=== PATIENT | female | born 1985 | race Caucasian/White ===

== ENCOUNTER 2018-05-15 08:31 | Observation (INO) | payer MEDICAID ==
[2018-05-15] VITALS (12 sets, daily range): BP systolic 90–136; BP diastolic 57–84
[~2018-05-15] VITALS: Ht 167.6 cm; Wt 85.8 kg
[~2018-05-15 08:31] MED LIST: ACHD5005 PO; ALBU17AE23; ALBU17AE3; AMOX500C2 PO; BCP; FERR256T PO; FLUO10CA19; FLUO20CA25; FLUO20CA25 PO; GFCD10B PO; IBP800T PO; MELO-198 PO; METH4TAB PO; MONT10TA21; NAPR-243 PO; NAPR-915 PO; PROP-33; PS30T; TRAM-42 PO; TRIA16.5 NS; [UNRECOGNIZED DRUG - CODE]; [UNRECOGNIZED DRUG - CODE] PO
[2018-05-15] MEDS ORDERED: CETI10CA PO (09:14)
[2018-05-15] MEDS ORDERED: NS IV 1000 ML 1,000 ML IV ONE ×2 (09:23→10:12)
[2018-05-15] MEDS ORDERED: ONDANSETRON 4 MG/2 ML (SDV) Z0FRAN IVP ONE (09:30)
[2018-05-15 09:34] LABS: BASOPHILS % (AUTO) 0 % (0-10); BILIRUBIN,URINE NEGATIVE (NEGATIVE); CLARITY,URINE VERY CLOUDY; COLOR,URINE YELLOW; EOSINOPHILS % (AUTO) 0 % (0-10); GLUCOSE, URINE (UA) NEGATIVE (NEGATIVE); HEMATOCRIT 30 % (35-52); HEMOGLOBIN 9.9 G/DL (11.5-16.0); KETONES,URINE NEGATIVE (NEGATIVE); LEUKOCYTE ESTERASE ,URINE 3+ (NEGATIVE); LYMPHOCYTES # (AUTO) 0.9 X 10^3 (1.0-4.0); LYMPHOCYTES % (AUTO) 6 % (12-44); MEAN CORPUSCULAR HEMOGLOBIN 23 PG (25-34); MEAN CORPUSCULAR HGB CONC 33 G/DL (32-36); MEAN CORPUSCULAR VOLUME 72 FL (80-99); MEAN PLATELET VOLUME 10.9 FL (7.4-10.4); MONOCYTES # (AUTO) 0.7 X 10^3 (0.0-1.0); MONOCYTES % (AUTO) 5 % (0-12); NEUTROPHILS # (AUTO) 13.2 X 10^3 (1.8-7.8); NEUTROPHILS % (AUTO) 89 % (42-75); NITRITE,URINE NEGATIVE (NEGATIVE); PH,URINE 5 (5-9); PLATELET COUNT 288 10^3/uL (130-400); PROTEIN,URINE 3+ (NEGATIVE); RED BLOOD COUNT 4.25 10^6/uL (4.35-5.85); RED CELL DISTRIBUTION WIDTH 17.4 % (10.0-14.5); UROBILINOGEN,URINE NORMAL (NORMAL); WHITE BLOOD COUNT 14.9 10^3/uL (4.3-11.0)
--- NOTE | 2018-05-15 09:39 | ED General ---
General Chief Complaint: Fever-Adult/Adol Stated Complaint: FEVER 102 Nursing Triage Note: PT AMBULATES TO ROOM 9 PT STATES HAS HAD FEVER FOR 2 DAYS, PT STATES HAD TAKEN MOTRIN 800MG PO PRIOR TO COMING TO ED. PT CO OF LOW BACK PAIN AND CASTELLANOS. PT STATES HAD STREP THROAT A COUPLE WEEKS AGO Nursing Sepsis Screen: Possible Sepsis Risk (ADIA SANZ STUDENT) History of Present Illness Date Seen by Provider: May 15, 2018 Time Seen by Provider: 08:57 Initial Comments This is a 33 y.o female presenting to the ED with complaints of 102 fever that began yesterday 05/14. Pt also complains of lower back pain and headaches that began on 05/12. Patient admits to being lightheaded yesterday while cooking dinner and had to sit down because she felt like she was going to pass out, pt denies falling or loss of consciousness. Pt admits to increased urination, decrease in appetite, chest pressure, cough, nasal congestion and nausea; denies SOA, painful urination, vomiting, constipation (last BM 2 days ago, normal per pt), diarrhea, sore throat, nasal drainage. Pt was recently treated for Strep pharyngitis on 05/01, pt states she finished her antibiotics and here symptoms resolved. Pt LMP was 05/10, hx of tubal ligation. PMH asthma and anemia. (ADIA SANZ STUDENT) Allergies and Home Medications Allergies Coded Allergies: Penicillins (Verified Allergy, Unknown, 08/07/16) diphenhydramine (Verified Allergy, Unknown, 10/05/06) Uncoded Allergies: BENEDRYL (Allergy, Mild, 03/12/09) Home Medications Cetirizine HCl 10 Mg Capsule, 10 MG PO DAILY, (Reported) Naproxen 500 Mg Tablet, 500 MG PO BID Prescribed by: JOSEPH PATEL on 06/27/16 1709 Patient Home Medication List Home Medication List Reviewed: Yes (ADIA SANZ STUDENT) Review of Systems Constitutional: see HPI, dizziness, fever EENTM: see HPI, nose congestion, other (photophobia ); No ear pain, No throat pain Respiratory: see HPI, cough; No short of breath, No wheezing Cardiovascular: see HPI, other (Chest pressure ) Gastrointestinal: see HPI; No abdominal pain, No constipation, No diarrhea; loss of appetite, nausea; No vomiting Genitourinary: see HPI; No dysuria; frequency; No pain Musculoskeletal: back pain Skin: no symptoms reported Psychiatric/Neurological: No Symptoms Reported Hematologic/Lymphatic: Anemia (PMH ) Immunological/Allergic: no symptoms reported (YVONADIA Atticous STUDENT) Past Rqbqifo-Wfccig-Fylxns Hx Patient Social History Alcohol Use: Denies Use Recreational Drug Use: No Smoking Status: Never a Smoker Recent Foreign Travel: No Contact w/Someone Who Travel: No Recent Infectious Disease Expo: No Recent Hopitalizations: No Physical Abuse: No Sexual Abuse: No (HERMANNCHETADIA Atticous STUDENT) Seasonal Allergies Seasonal Allergies: Yes (HERMANNSUSAN ROSENBERGADIA MED IGLESIA) Past Medical History Surgeries: Yes (RIGHT SHOULDER-LABRAL TEAR) Orthopedic, Tubal Ligation Respiratory: Yes Asthma Cardiac: No Neurological: No Last Menstrual Period: May 10, 2018 ADMISSIONS COORDINATOR History: Tubal Ligation Gastrointestinal: No Musculoskeletal: Yes (CHRONIC RIGHT SHOULDER PAIN-BICEPS TENDONITIS--LABRAL TEAR) Endocrine: No Cancer: No Psychosocial: Yes Anxiety, Depression Nursing Suicide Risk Score: 0 Integumentary: No Blood Disorders: Yes (ANEMIA) (YVONADIA Atticous STUDENT) Family Medical History Heart Disease (CHADJESSICAADIA Atticous IGLESIA) Physical Exam Vital Signs Vital Signs - First Documented 05/15/18 08:45 Temp 103.9 Pulse 122 Resp 30 B/P (MAP) 126/68 (87) Pulse Ox 98 (RUTHY PALAFOX MD) Vital Signs Capillary Refill : Less Than 3 Seconds (HERMANNCHETADIA Atticous STUDENT) Height, Weight, BMI Height: 5'6.00" Weight: 178lbs. oz. [id number]; 30.82 BMI Method:Stated General Appearance: Mild Distress Eyes: Bilateral Eye Normal Inspection, Bilateral Eye PERRL, Bilateral Eye EOMI HEENT: TMs Normal, Other (pharynx mildly erythematous, mild tenderness to the R frontal sinus) Neck: Full Range of Motion, Normal Inspection, Non Tender, Supple Respiratory: Chest Non Tender, Lungs Clear, Normal Breath Sounds, No Accessory Muscle Use, Other Cardiovascular: No Edema, No Gallop, No JVD, No Murmur, Normal Peripheral Pulses, Tachycardia Gastrointestinal: Normal Bowel Sounds, No Organomegaly, No Pulsatile Mass, Non Tender, Soft Back: CVA Tenderness (R) Extremity: Normal Capillary Refill, Normal Inspection, Normal Range of Motion, Non Tender, No Calf Tenderness, No Pedal Edema Neurologic/Psychiatric: Alert, Oriented x3, No Motor/Sensory Deficits, Normal Mood/Affect Skin: Normal Color, Warm/Dry (ADIA SANZ MED STUDENT) Focused Exam Lactate Level 05/15/18 08:55: Lactic Acid Level 3.51*H (RUTHY PALAFOX MD) Lactic Acid Level Laboratory Tests Test 05/15/18 08:55 Lactic Acid Level 3.51 MMOL/L (0.50-2.00) *H (RUTHY PALAFOX MD) Progress/Results/Core Measures Suspected Sepsis Recent Fever Within 48 Hours: Yes Infection Criteria Present: Suspected New Infection New/Unexplained Altered Menta: No Sepsis Screen: Possible Sepsis Risk SIRS Temperature:103.9 Pulse: 122 Respiratory Rate: 30 Laboratory Tests 05/15/18 08:55: White Blood Count 14.9H Blood Pressure 126 /68 Mean: 87 05/15/18 08:55: Lactic Acid Level 3.51*H Laboratory Tests 05/15/18 08:55: Creatinine 0.93, INR Comment 1.1, Platelet Count 288, Total Bilirubin 0.5 (ADIA SANZ MED STUDENT) Results/Orders Lab Results Laboratory Tests Test 05/15/18 08:55 Range/Units White Blood Count 14.9 H 4.3-11.0 10^3/uL Red Blood Count 4.25 L 4.35-5.85 10^6/uL Hemoglobin 9.9 L 11.5-16.0 G/DL Hematocrit 30 L 35-52 % Mean Corpuscular Volume 72 L 80-99 FL Mean Corpuscular Hemoglobin 23 L 25-34 PG Mean Corpuscular Hemoglobin Concent 33 32-36 G/DL Red Cell Distribution Width 17.4 H 10.0-14.5 % Platelet Count 288 130-400 10^3/uL Mean Platelet Volume 10.9 H 7.4-10.4 FL Neutrophils (%) (Auto) 89 H 42-75 % Lymphocytes (%) (Auto) 6 L 12-44 % Monocytes (%) (Auto) 5 0-12 % Eosinophils (%) (Auto) 0 0-10 % Basophils (%) (Auto) 0 0-10 % Neutrophils # (Auto) 13.2 H 1.8-7.8 X 10^3 Lymphocytes # (Auto) 0.9 L 1.0-4.0 X 10^3 Monocytes # (Auto) 0.7 0.0-1.0 X 10^3 Eosinophils # (Auto) 0.0 0.0-0.3 10^3/uL Basophils # (Auto) 0.0 0.0-0.1 10^3/uL Prothrombin Time 14.5 12.2-14.7 SEC INR Comment 1.1 0.8-1.4 Activated Partial Thromboplast Time 27 24-35 SEC Urine Color YELLOW Urine Clarity VERY CLOUDY H Urine pH 5 5-9 Urine Specific [place] 1.015 L 1.016-1.022 Urine Protein 3+ H NEGATIVE Urine Glucose (UA) NEGATIVE NEGATIVE Urine Ketones NEGATIVE NEGATIVE Urine Nitrite NEGATIVE NEGATIVE Urine Bilirubin NEGATIVE NEGATIVE Urine Urobilinogen NORMAL NORMAL MG/DL Urine Leukocyte Esterase 3+ H NEGATIVE Urine RBC (Auto) 5+ H NEGATIVE Urine RBC 25-50 H /HPF Urine WBC TNTC H /HPF Urine Squamous Epithelial Cells >50 H /HPF Urine Crystals NONE /LPF Urine Bacteria MODERATE H /HPF Urine Casts NONE /LPF Urine Mucus NEGATIVE /LPF Urine Culture Indicated YES Sodium Level 137 135-145 MMOL/L Potassium Level 3.5 L 3.6-5.0 MMOL/L Chloride Level 104 98-107 MMOL/L Carbon Dioxide Level 25 21-32 MMOL/L Anion Gap 8 5-14 MMOL/L Blood Urea Nitrogen 7 7-18 MG/DL Creatinine 0.93 0.60-1.30 MG/DL Estimat Glomerular Filtration Rate > 60 BUN/Creatinine Ratio 8 Glucose Level 152 H 70-105 MG/DL Lactic Acid Level 3.51 *H 0.50-2.00 MMOL/L Calcium Level 9.5 8.5-10.1 MG/DL Total Bilirubin 0.5 0.1-1.0 MG/DL Aspartate Amino Transf (AST/SGOT) 8 5-34 U/L Alanine Aminotransferase (ALT/SGPT) 8 0-55 U/L Alkaline Phosphatase 70 40-136 U/L Total Protein 7.9 6.4-8.2 GM/DL Albumin 3.9 3.2-4.5 GM/DL Group A Streptococcus Screen NEGATIVE NEGATIVE (RUTHY PALAFOX MD) My Orders Orders - RUTHY PALAFOX MD Cbc With Automated Diff (05/15/18:) Comprehensive Metabolic Panel (05/15/18:) Lactic Acid Analyzer (05/15/18:) Blood Culture (05/15/18:) Sputum Culture (05/15/18:) Ua Culture If Indicated (05/15/18) Protime With Inr (05/15/18:) Partial Thromboplastin Time (05/15/18:) O2 (05/15/18:) Saline Lock/Iv-Start (05/15/18) Saline Lock/Iv-Start (05/15/18:) Vital Signs Adult Sepsis Patie Q15M (05/15/18:23) Remove Rings In Anticipation O (05/15/18:) Influenza A And B Antigens (05/15/18:) Saline Lock/Iv-Start (05/15/18:23) Ns Iv 1000 Ml (Sodium Chloride 0.9%) (05/15/18 09:23) Rapid Strep A Screen (05/15/18:) Chest Pa/Lat (2 View) (05/15/18 09:23) Ondansetron Injection (Zofran Injectio (05/15/18 09:30) Manual Differential (05/15/18 08:55) Urine Culture (05/15/18 08:55) Acetaminophen Tablet (Tylenol Tablet) (05/15/18 10:06) Saline Lock/Iv-Start (05/15/18 10:12) Ns Iv 1000 Ml (Sodium Chloride 0.9%) (05/15/18 10:12) Saline Lock/Iv-Start (05/15/18 10:12) Lactated Ringers (Lr 1000 Ml Iv Solution (05/15/18 10:12) Ketorolac Injection (Toradol Injection) (05/15/18 10:30) Ceftriaxone Injection (Rocephin Injectio (05/15/18 10:30) (RUTHY PALAFOX MD) Medications Given in ED Current Medications Medications Dose Ordered Sig/Lisa Route Start Time Stop Time Status Last Admin Dose Admin Acetaminophen 500 mg STK-MED ONCE .ROUTE 05/15/18 10:06 05/15/18 10:09 DC 05/15/18 10:05 500 MG Lactated Ringer's 1,000 ml @ 0 mls/hr Q0M ONCE IV 05/15/18 10:12 05/15/18 10:13 DC 05/15/18 10:45 1,000 MLS/HR Ondansetron HCl 8 mg ONCE ONCE IVP 05/15/18 09:30 05/15/18 09:31 DC 05/15/18 09:35 8 MG Sodium Chloride 1,000 ml @ 0 mls/hr Q0M ONCE IV 05/15/18 09:23 05/15/18 09:26 DC 05/15/18 09:35 1,000 MLS/HR (RUTHY PALAFOX MD) Vital Signs/I&O 05/15/18 08:45 Temp 103.9 Pulse 122 Resp 30 B/P (MAP) 126/68 (87) Pulse Ox 98 (RUTHY PALAFOX MD) Vital Signs/I&O Capillary Refill : Less Than 3 Seconds (ADIA SANZ STUDENT) Blood Pressure Mean: 87 Progress Note #1: Time: 09:00 Progress Note Pt seen and examined. Pt running a fever of 103.9 with HR 122 and RR 30. Urine looked cloudy on inspection. Will proceed with septic workup. Progress Note #2: Time: 10:20 Progress Note Labs show significant UTI with elevated WBC of 13.9 and lactic acid of 3.51. Discussed PCN allergy with patient she states she has had cephalosporins without incident in the past, will start Rocephin. Due to lactic acid of 3.51, will administer extra IVF incase of increase above 4 with administration of antibiotic. Pt complains of headache, Toradol was ordered. Tylenol was administered. Chest XR is unremarkable. Strep was negative (ADIA SANZ STUDENT) Progress Note : Progress Note Patient was interviewed, seen, and examined by me personally along with JODI Stringer student. I agree with her history, exam, assessment, and plan with the following additions. Patient has been afebrile since yesterday. She describes headache, backache, increased urinary frequency, and nausea. She was found to have a significant urinary tract infection by urinalysis. Septic workup was pursued. She is tachycardic and febrile and has an elevated WBC and lactic acid. Although patient does not quite meet severe sepsis criteria, aggressive hydration was ordered with 3 L of IV fluids in the ER. Patient was given Tylenol and Rocephin was administered for initial antibiotic therapy. Zofran was given for nausea. Toradol was given for headache. Heart rate was improving with hydration. Case was discussed with Dr. Power who agrees with admission. Blood pressure was stable and heart rate was improving with IV hydration. Influenza screen was pending at the time of admission. Therefore admission to the floor was felt appropriate. Exam: Gen.: Alert, oriented, uncomfortable, not in distress HEENT: Normocephalic and atraumatic Heart: Tachycardic with regular rhythm Lungs: Clear to auscultation bilaterally with normal effort Abdomen: Soft, nontender, normal bowel sounds Extremities: Nontender calves, no edema, negative Tia Skin: Warm, dry, no rashes (RUTHY PALAFOX MD) Diagnostic Imaging Diagonstic Imaging: Xray Plain Films/CT/US/NM/MRI: chest Comments Xray and report reviewed by me, see report below: NAME: PEDRO LYLE REC#: [id number] PT STATUS: REG ER : 1985 PHYSICIAN: RUTHY PALAFOX MD ADMIT DATE: 05/15/18/ER Draft Date of Exam:05/15/18 CHEST PA/LAT (2 VIEW) Indication: Headache, chills and back pain. Time of exam: 10:00 a.m. Comparison is made with prior study from 01/15/2013. The heart size is normal. The pulmonary vascularity is unremarkable. The lungs are clear. No infiltrate, effusion or pneumothorax is detected. Impression: No acute cardiopulmonary process is detected. Dictated on workstation # [id number] Dict: 05/15/18 0942 Trans: 05/15/18 0949 CV [id number] Interpreted by: EMANUEL ROY MD Electronically signed by: (ADIA SANZ) Departure Communication (Admissions) Time/Spoke to Admitting Phy: 10:[address] Power (ADIA SANZ) Impression Primary Impression: Sepsis Qualified Codes: A41.9 - Sepsis, unspecified organism Additional Impressions: Pyelonephritis Nausea Chest discomfort Headache Disposition: ADMITTED INPATIENT Condition: Stable/Unchanged Admissions Decision to Admit Reason: Admit from ER (General) Decision to Admit/Date: May 15, 2018 Time/Decision to Admit Time: 10:20 (ADIA SANZ) Departure-Patient Inst. Referrals: [facility] (PCP/Family) Primary Care Physician ADIA SANZ May 15, 2018 09:39 RUTHY PALAFOX MD May 15, 2018 10:59
[2018-05-15 09:41] LABS: INR 1.1 (0.8-1.4); PROTHROMBIN TIME PATIENT 14.5 SEC (12.2-14.7)
[2018-05-15 09:47] LABS: ALANINE AMINOTRANSFERASE 8 U/L (0-55); ALBUMIN 3.9 GM/DL (3.2-4.5); ALKALINE PHOSPHATASE 70 U/L (40-136); BILIRUBIN,TOTAL 0.5 MG/DL (0.1-1.0); BUN/CREATININE RATIO 8; CALCIUM 9.5 MG/DL (8.5-10.1); CARBON DIOXIDE 25 MMOL/L (21-32); CHLORIDE 104 MMOL/L (98-107); CREATININE SERUM 0.93 MG/DL (0.60-1.30); GFR ESTIMATED > 60; GLUCOSE 152 MG/DL (70-105); POTASSIUM 3.5 MMOL/L (3.6-5.0); SODIUM 137 MMOL/L (135-145); TOTAL PROTEIN 7.9 GM/DL (6.4-8.2)
--- NOTE | 2018-05-15 09:49 | Diagnostic Imaging Report ---
Indication: Headache, chills and back pain. Time of exam: 10:00 a.m. Comparison is made with prior study from 01/15/2013. The heart size is normal. The pulmonary vascularity is unremarkable. The lungs are clear. No infiltrate, effusion or pneumothorax is detected. Impression: No acute cardiopulmonary process is detected. Dictated by: Dictated on workstation # [id number]
[2018-05-15 09:55] LABS: BACTERIA,URINE MODERATE /HPF; RBC,URINE 25-50 /HPF; SQUAMOUS EPITHELIAL CELL,UR >50 /HPF; WBC,URINE TNTC /HPF
[2018-05-15] MEDS ORDERED: ACETAMINOPHEN 500 MG TAB (TYLENOL) ONE (10:06)
[2018-05-15] MEDS ORDERED: LACTATED RINGERS 1,000 ML IV ONE (10:12)
[2018-05-15] MEDS ORDERED: cefTRIAXone INJECTION 1,000 MG in NS (IVPB) 50 ML IV ONE (10:30)
[2018-05-15] MEDS ORDERED: KETOROLAC 30 MG/ML VIAL IVP ONE (10:30)
[2018-05-15 10:56] LABS: BAND NEUTROPHILS 8 %; LYMPHOCYTES % (MANUAL) 4 %; MONOCYTES % (MANUAL) 5 %; NEUTROPHILS % (MANUAL) 83 %
[2018-05-15 10:57] LABS: ANISOCYTOSIS SLIGHT; BASOPHILS % (MANUAL) 0 %; ELLIPT/OVALOCYTES SLIGHT; EOSINOPHILS % (MANUAL) 0 %; MICROCYTOSIS SLIGHT; POLYCHROMASIA SLIGHT
[2018-05-15] MEDS ORDERED: ONDANSETRON 4 MG/2 ML (SDV) Z0FRAN IV PRN (11:30)
[2018-05-15] MEDS ORDERED: CATHETER FLUSH 10 ML SYR IV PRN (11:30)
[2018-05-15] MEDS: IBUPROFEN 600 MG (MOTRIN) TAB PO PRN (13:05)
[2018-05-15] MEDS ORDERED: CETI10TA20 PO (14:38)
[2018-05-15] MEDS ORDERED: NAPR220T66 PO (14:38)
[2018-05-15] MEDS: NS IV 1000 ML 1,000 ML IV SCH ×3 (15:04→22:52)
[2018-05-15] MEDS: ACETAMINOPHEN 500 MG TAB (TYLENOL) PO PRN (16:48)
[2018-05-16] VITALS (8 sets, daily range): BP systolic 98–137; BP diastolic 58–80
[2018-05-16] MEDS: ACETAMINOPHEN 500 MG TAB (TYLENOL) PO PRN ×2 (01:17→20:06)
[2018-05-16 06:41] LABS: BASOPHILS % (AUTO) 0 % (0-10); EOSINOPHILS % (AUTO) 0 % (0-10); HEMATOCRIT 27 % (35-52); HEMOGLOBIN 8.5 G/DL (11.5-16.0); LYMPHOCYTES # (AUTO) 1.5 X 10^3 (1.0-4.0); LYMPHOCYTES % (AUTO) 9 % (12-44); MEAN CORPUSCULAR HEMOGLOBIN 23 PG (25-34); MEAN CORPUSCULAR HGB CONC 32 G/DL (32-36); MEAN CORPUSCULAR VOLUME 73 FL (80-99); MONOCYTES % (AUTO) 6 % (0-12); NEUTROPHILS # (AUTO) 14.1 X 10^3 (1.8-7.8); NEUTROPHILS % (AUTO) 85 % (42-75); PLATELET COUNT 244 10^3/uL (130-400); RED BLOOD COUNT 3.68 10^6/uL (4.35-5.85); RED CELL DISTRIBUTION WIDTH 17.4 % (10.0-14.5); WHITE BLOOD COUNT 16.6 10^3/uL (4.3-11.0)
[2018-05-16] MEDS: NS IV 1000 ML 1,000 ML IV SCH ×3 (06:44→23:40)
[2018-05-16] MEDS: IBUPROFEN 600 MG (MOTRIN) TAB PO PRN ×2 (06:47→13:59)
[2018-05-16 06:59] LABS: BUN/CREATININE RATIO 9; CALCIUM 8.4 MG/DL (8.5-10.1); CARBON DIOXIDE 21 MMOL/L (21-32); CHLORIDE 110 MMOL/L (98-107); CREATININE SERUM 0.75 MG/DL (0.60-1.30); GFR ESTIMATED > 60; GLUCOSE 104 MG/DL (70-105); POTASSIUM 3.6 MMOL/L (3.6-5.0); SODIUM 140 MMOL/L (135-145)
--- NOTE | 2018-05-16 08:41 | History & Physicial (CHS) ---
DAYNE IQBAL MED STUDENT 05/16/18 0841: HPI History of Present Illness: Patient is a 33 year old female who presented to the ED yesterday for fever and right lower back pain. She states that she has been running a high fever as well up to 103 and has been having increased urination the past few days but denies dysuria. She does admit to having some occasional headaches as well, admits to some nausea but no vomiting. Denies abdominal pain, and admits to some constipation. Her last bowel movement was 2 days ago. She was treated for strep pharyngitis on 05/01 and has finished her abx. She is feeling better today and is able to get up and use the bathroom. She tried eating twice yesterday but stopped due to nausea. Though she is feeling better and has not had a fever since yesterday, she would like to stay one more day to get feeling better. Source: patient Exam Limitations: no limitations Date seen by provider: May 16, 2018 Time Seen by Provider: 08:00 Attending Physician Valarie Power MD [facility] Consult Date of Admission May 15, 2018 at 10:25 Home Medications Home Medications Reviewed patient Home Medication Reconciliation performed by pharmacy medication reconciliations aircraft technician and/or nursing. Patients Allergies have been reviewed. Allergies Coded Allergies: Penicillins (Verified Allergy, Unknown, Pt has received ceftriaxone in the past w/o issue, 05/15/18) diphenhydramine (Verified Allergy, Unknown, 10/05/06) SPQ-Okwtza-Bofooi Hx Patient Social History Alcohol Use: Occasionally Uses Recreational Drug Use: No Smoking Status: Never a Smoker Recent Foreign Travel: No Contact w/other who traveled: No Recent Hopitalizations: No Recent Infectious Disease Expo: No Physical Abuse Screen: No Sexual Abuse: No Family Medical History Significant Family History: Heart Disease Family History: Patient reports no known family medical history. Review of Systems ([facility]) Constitutional: chills; No dizziness; fever, malaise EENTM: No blurred vision, No double vision, No throat pain Respiratory: No cough, No dyspnea on exertion, No short of breath Cardiovascular: No chest pain, No palpitations, No syncope Gastrointestinal: No abdominal pain; constipation, nausea; No vomiting Genitourinary: No dysuria; frequency Musculoskeletal: back pain (Right sided flank pain) Skin: no symptoms reported Psychiatric/Neurological: No Symptoms Reported Physical Exam-([facility]) Physical Exam Vital Signs VS - Last 72 Hours, by Label 05/15/18 05/15/18 05/15/18 05/15/18 08:45 10:58 11:20 11:20 Temp 103.9 101.7 100.3 Pulse 122 101 96 Resp 30 18 22 B/P (MAP) 126/68 (87) 120/78 96/59 Pulse Ox 98 99 98 O2 Delivery Room Air Room Air 05/15/18 05/15/18 05/15/18 05/15/18 11:40 11:56 12:05 13:00 Pulse 92 92 100 98 Resp 20 20 B/P (MAP) 106/70 90/62 Pulse Ox 94 94 05/15/18 05/15/18 05/15/18 05/15/18 14:41 15:20 16:20 16:45 Temp 98.3 Pulse 83 83 97 78 Resp 20 16 20 B/P (MAP) 100/66 104/68 (80) 120/76 (91) 93/63 Pulse Ox 100 100 100 100 O2 Delivery Room Air 05/15/18 05/15/18 05/15/18 05/15/18 16:48 17:20 18:20 19:00 Temp 100.4 Pulse 95 91 95 B/P (MAP) 136/84 (101) 94/58 (70) Pulse Ox 100 98 05/15/18 05/15/18 05/15/1818 19:20 19:20 20:20 20:20 Temp 98.8 Pulse 90 90 86 86 Resp 18 18 B/P (MAP) 90/57 90/57 (68) 96/65 (75) 96/65 Pulse Ox 98 98 98 98 O2 Delivery Room Air Room Air 05/15/18 05/16/18 05/16/18 05/16/18 23:10 01:00 01:00 02:04 Temp 99.1 100.3 99.7 Pulse 94 95 93 Resp 16 18 B/P (MAP) 102/71 104/68 Pulse Ox 99 98 O2 Delivery Room Air Room Air 05/16/18 05/16/18 05/16/18 03:07 05:03 07:00 Temp 98.9 97.8 Pulse 84 74 95 Resp 16 18 B/P (MAP) 110/75 137/80 Pulse Ox 96 97 O2 Delivery Room Air Room Air Capillary Refill : Less Than 3 Seconds General Appearance: moderate distress HEENT: PERRL/EOMI Neck: non-tender, full range of motion, supple, normal inspection Respiratory: chest non-tender, lungs clear, normal breath sounds, no respiratory distress, no accessory muscle use Cardiovascular: regular rate, rhythm, no edema, no gallop, no JVD, no murmur Gastrointestinal: normal bowel sounds, soft, no organomegaly, no pulsatile mass , tenderness (Mild diffuse tenderness) Back: normal inspection, CVA tenderness (R) Extremities: non-tender, normal inspection, no pedal edema, no calf tenderness Neurologic/Psychiatric: alert, normal mood/affect, oriented x 3 Skin: normal color, warm/dry Lymphatic: no adenopathy Assessment/Plan Assessment/Plan Admission Dx Pyelonephritis Admission Status: Inpatient Order (span 2 midnights) Reason for Inpatient Admission: Pyelonephritis Assessment & Plan Pyelonephritis - IV Ceftriaxone - Continue to monitor - Last WBC count was 16.6 Sepsis/Fever - Lactate at admit was 3.5. This has decreased to 0.82 - Acetaminophen prn - Last fever was yesterday at 4:00 and was 100.4 Headache - Acetaminophen prn Nausea - Food as tolerated - Zofran PRN Clinical Quality Measures DVT/VTE Risk/Contraindication: Risk Factor Score Per Nursin RFS Level Per Nursing on Admit: 1=Low/No VTE PPX Copy Copies To 1: VALARIE POWER MD, HOLLY R MD 05/16/18 1502: HPI History of Present Illness: Reviewed history with patient and agree with student's documentation Home Medications Allergies Coded Allergies: Penicillins (Verified Allergy, Unknown, Pt has received ceftriaxone in the past w/o issue, 05/15/18) diphenhydramine (Verified Allergy, Unknown, 10/05/06) PTN-Zeudqx-Hrudnw Hx Past Medical History None Family Medical History Family History: Patient reports no known family medical history. Review of Systems ([facility]) Constitutional: chills, fever, malaise EENTM: no symptoms reported Respiratory: no symptoms reported Cardiovascular: no symptoms reported Gastrointestinal: constipation Genitourinary: No dysuria; frequency; No hematuria : No Musculoskeletal: back pain (Right sided flank pain improved from yesterday) Skin: no symptoms reported Psychiatric/Neurological: No Symptoms Reported Reviewed Test Results Reviewed Test Results Lab Laboratory Tests Test 05/16/18 05:30 Range/Units White Blood Count 16.6 H 4.3-11.0 10^3/uL Red Blood Count 3.68 L 4.35-5.85 10^6/uL Hemoglobin 8.5 L 11.5-16.0 G/DL Hematocrit 27 L 35-52 % Mean Corpuscular Volume 73 L 80-99 FL Mean Corpuscular Hemoglobin 23 L 25-34 PG Mean Corpuscular Hemoglobin Concent 32 32-36 G/DL Red Cell Distribution Width 17.4 H 10.0-14.5 % Platelet Count 244 130-400 10^3/uL Mean Platelet Volume 11.0 H 7.4-10.4 FL Neutrophils (%) (Auto) 85 H 42-75 % Lymphocytes (%) (Auto) 9 L 12-44 % Monocytes (%) (Auto) 6 0-12 % Eosinophils (%) (Auto) 0 0-10 % Basophils (%) (Auto) 0 0-10 % Neutrophils # (Auto) 14.1 H 1.8-7.8 X 10^3 Lymphocytes # (Auto) 1.5 1.0-4.0 X 10^3 Monocytes # (Auto) 1.0 0.0-1.0 X 10^3 Eosinophils # (Auto) 0.0 0.0-0.3 10^3/uL Basophils # (Auto) 0.0 0.0-0.1 10^3/uL Sodium Level 140 135-145 MMOL/L Potassium Level 3.6 3.6-5.0 MMOL/L Chloride Level 110 H 98-107 MMOL/L Carbon Dioxide Level 21 21-32 MMOL/L Anion Gap 9 5-14 MMOL/L Blood Urea Nitrogen 7 7-18 MG/DL Creatinine 0.75 0.60-1.30 MG/DL Estimat Glomerular Filtration Rate > 60 BUN/Creatinine Ratio 9 Glucose Level 104 70-105 MG/DL Calcium Level 8.4 L 8.5-10.1 MG/DL Smear Scan Radiology Date of Exam: 05/15/18 CHEST PA/LAT (2 VIEW) Indication: Headache, chills and back pain. Time of exam: 10:00 a.m. Comparison is made with prior study from 01/15/2013. The heart size is normal. The pulmonary vascularity is unremarkable. The lungs are clear. No infiltrate, effusion or pneumothorax is detected. Impression: No acute cardiopulmonary process is detected. Physical Exam-([facility]) Physical Exam General Appearance: WD/WN, moderate distress HEENT: PERRL/EOMI Neck: non-tender, full range of motion, supple Respiratory: chest non-tender, lungs clear, normal breath sounds, no respiratory distress, no accessory muscle use Cardiovascular: normal peripheral pulses, regular rate, rhythm, no edema, no murmur Gastrointestinal: normal bowel sounds, soft, no organomegaly; No distended, No guarding, No rebound; tenderness (Mild diffuse tenderness) Back: CVA tenderness (R) Extremities: non-tender, no pedal edema, no calf tenderness, normal capillary refill Neurologic/Psychiatric: trailer chief II-XII nml as tested, no motor/sensory deficits, alert, normal mood/affect, oriented x 3 Skin: normal color, warm/dry Lymphatic: no adenopathy Assessment/Plan Assessment/Plan Admission Status: Inpatient Order (span 2 midnights) Reason for Inpatient Admission: Needs IV antibiotics due to not tolerating PO (1) Pyelonephritis Status: Acute Assessment & Plan: - Continue Rocephin D2, Will switch to Keflex at discharge - IVFs 125 hr, start PO hydration when tolerated (2) Microcytic anemia Status: Chronic Assessment & Plan: - Likely 2/2 menstruation, Will start iron supplementation when able to tolerate PO DAYNE IQBAL MED STUDENT May 16, 2018 08:41 VALARIE POWER MD May 16, 2018 15:02
[2018-05-16] MEDS: cefTRIAXone 1 GM/NS 50 ML IVPB IV SCH ×2 (09:07)
[2018-05-17 04:32] VITALS: BP 121/81
[2018-05-17 06:02] LABS: BASOPHILS % (AUTO) 0 % (0-10); EOSINOPHILS # (AUTO) 0.1 10^3/uL (0.0-0.3); EOSINOPHILS % (AUTO) 1 % (0-10); HEMATOCRIT 28 % (35-52); LYMPHOCYTES # (AUTO) 1.3 X 10^3 (1.0-4.0); LYMPHOCYTES % (AUTO) 13 % (12-44); MEAN CORPUSCULAR HEMOGLOBIN 23 PG (25-34); MEAN CORPUSCULAR HGB CONC 32 G/DL (32-36); MEAN CORPUSCULAR VOLUME 72 FL (80-99); MEAN PLATELET VOLUME 10.9 FL (7.4-10.4); MONOCYTES # (AUTO) 0.9 X 10^3 (0.0-1.0); MONOCYTES % (AUTO) 9 % (0-12); NEUTROPHILS # (AUTO) 7.8 X 10^3 (1.8-7.8); NEUTROPHILS % (AUTO) 77 % (42-75); PLATELET COUNT 259 10^3/uL (130-400); RED BLOOD COUNT 3.86 10^6/uL (4.35-5.85); RED CELL DISTRIBUTION WIDTH 17.4 % (10.0-14.5); WHITE BLOOD COUNT 10.2 10^3/uL (4.3-11.0)
[2018-05-17 06:24] LABS: BUN/CREATININE RATIO 8; CALCIUM 9.1 MG/DL (8.5-10.1); CARBON DIOXIDE 21 MMOL/L (21-32); CHLORIDE 111 MMOL/L (98-107); CREATININE SERUM 0.65 MG/DL (0.60-1.30); GFR ESTIMATED > 60; GLUCOSE 91 MG/DL (70-105); POTASSIUM 3.4 MMOL/L (3.6-5.0); SODIUM 140 MMOL/L (135-145)
[2018-05-17 08:06] VITALS: BP 114/74
[2018-05-17] MEDS: cefTRIAXone 1 GM/NS 50 ML IVPB IV SCH ×2 (08:09)
--- NOTE | 2018-05-17 10:52 | Discharge Summary ---
Diagnosis/Chief Complaint Date of Admission May 15, 2018 at 10:25 am Date of Discharge 05/17/2018 Admission Diagnosis Admission Diagnosis Pyelonephritis Microcytic Anemia Discharge Diagnosis See Above Chief Complaint/HPI Chief Complaint/HPI Reviewed history with patient and agree with student's documentation Discharge Summary-Simple/Stand Consultations None Discharge Physical Examination Allergies: Coded Allergies: Penicillins (Verified Allergy, Unknown, Pt has received ceftriaxone in the past w/o issue, 05/15/18) diphenhydramine (Verified Allergy, Unknown, 10/05/06) Vitals & I&Os Vital Sign - Last 12Hours Date Time Temp Pulse Resp B/P (MAP) Pulse Ox O2 Delivery O2 Flow Rate FiO2 05/17/18 08:06 98.0 92 18 114/74 (87) 94 Room Air Intake and Output 05/17/18 00:00 Intake Total 2230 ml Output Total 1175 ml Balance 1055 ml General Appearance: Alert, Oriented X3, Cooperative, No Acute Distress HEENT: Mucous Memb Moist/Addison Respiratory: Clear to Auscultation, Normal Air Movement Cardiovascular: Regular Rate, No Murmurs Abdominal: Normal Bowel Sounds, Soft, No Hepatosplenomegaly, No Masses, Other ( mild suprapubic ttp) Extremities: No Edema, No Tenderness/Swelling Skin: No Rashes, No Breakdown Neuro: Normal Speech, Strength at 5/5 X4 Ext, Cranial Nerves 3-12 NL Psych/Mental Status: Mental Status NL, Mood NL Hospital Course See final discharge diagnosis. Radiology Reviewed Date of Exam: 05/15/18 CHEST PA/LAT (2 VIEW) Indication: Headache, chills and back pain. Time of exam: 10:00 a.m. Comparison is made with prior study from 01/15/2013. The heart size is normal. The pulmonary vascularity is unremarkable. The lungs are clear. No infiltrate, effusion or pneumothorax is detected. Impression: No acute cardiopulmonary process is detected. Discussion & Recommendations 33 yo F that was admitted with pyelonephritis that failed outpatient treatment Pyelonephritis: Urine culture shows ecoli that is resistant to bactrim. Discussed with patient that she should let provider know when she has UTI of this history of resistance so appropriate antibiotics can be started. Pain and labs improved with IV antibiotics. PO antibiotics were then started consistent with culture. Patient tolerating PO diet at time of discharge. Microcytic Anemia: Started on daily iron. Follow up as outpatient Discharge Condition at discharge stable Instructions to patient/family Please see electronic discharge instructions given to patient. Discharge Medications Reviewed and agree with Discharge Medication list on patient's Discharge Instruction sheet Clinical Quality Measures DVT/VTE Risk/Contraindication: Risk Factor Score Per Nursin RFS Level Per Nursing on Admit: 1=Low/No VTE PPX Copy Copies To 1: Andrew CRUZ HOLLY R MD May 17, 2018 10:52
[2018-05-17] MEDS ORDERED: CEPH-507 PO (10:53)
--- NOTE | 2018-05-17 10:56 | Discharge Instructions ---
Discharge Inst-[facility] Discharge Medications New, Converted or Re-Newed RX: Transmitted to Pharmacy New Medications: Cephalexin (Keflex) 500 Mg Capsule 500 MG PO BID for 10 Days, #20 CAP Continued Medications: Cetirizine HCl (Zyrtec) 10 Mg Tablet 10 MG PO DAILY, TAB Naproxen Sodium (Aleve) 220 Mg Tablet 440-660 MG PO BID PRN for PAIN-MILD, TAB Patient Instructions Goal/Follow Up Appt: You will be called on Saturday with a follow up appt Patient Instructions: - Make sure you complete your antibiotic - Make sure you stay well hydrated - Advance diet as tolerated Return to [facility]: - Fevers that don't improve with tylenol or motrin Activity & Diet Discharge Diet: No Restrictions Activity as Tolerated: Yes Orders-Post D/C & Referrals Pneu Vac Indicated: Yes Copy Copies To 1: Andrew CRUZ HOLLY R MD May 17, 2018 10:56 am
[2018-05-17] MEDS: ACETAMINOPHEN 500 MG TAB (TYLENOL) PO PRN (10:58)
[2018-05-17 11:10] VITALS: BP 114/74
== END 2018-05-17 11:10 | disposition home or self-care (01) ==
LOC: EDUNIT# 08:31 → ER 08:33 → UNDOADMOB 10:25 → UNDOADMIN 10:25 → 4TH 10:25 → UNDODISIN 05-17 11:10
PROVIDERS: ADMIT Family Medicine; ATTEND Family Medicine
DX: A41.9 Sepsis, unspecified organism (principal); N12 Tubulo-interstitial nephritis, not specified as acute or chronic; R07.89 Other chest pain; R51 Headache
CPT/HCPCS: 36415; 36430; 71046; 80048; 80053; 81000; 83605; 85007; 85025; 85027; 85610; 85730; 87040; 87077; 87088; 87186; 87430; 87804; 96361; 96374; 96375; G0378

== ENCOUNTER 2019-06-08 07:17 | Emergency (ER) | payer OTHER, MEDICAID ==
[~2019-06-08] VITALS: Ht 167.6 cm; Wt 83.9 kg
[~2019-06-08 07:17] MED LIST changes: +CEPH-507 PO; +CETI10CA PO; +CETI10TA20 PO; +NAPR220T66 PO
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
[2019-06-08] MEDS ORDERED: TETANUS,DIPTH,PERTUSS P/F (BOOSTRIX) 0.5 ML VIAL IM ONE (07:45)
[2019-06-08] MEDS ORDERED: KETOROLAC 30 MG/ML VIAL IVP ONE (07:45)
[2019-06-08] MEDS ORDERED: fentaNYL INJECTION 100 MCG/2 ML AMP IVP ONE (07:45)
[2019-06-08] MEDS ORDERED: OXYC1TAB87 PO (08:00)
[2019-06-08] MEDS ORDERED: BACI3.5O6 OP (08:06)
[2019-06-08 08:11] VITALS: BP 136/92
== END 2019-06-08 08:11 | disposition home or self-care (01) ==
LOC: EDUNIT# 07:17 → ER 07:18
DX: T20.20XA Burn of second degree of head, face, and neck, unspecified site, initial encounter (principal); T21.21XA Burn of second degree of chest wall, initial encounter; J45.909 Unspecified asthma, uncomplicated; F41.9 Anxiety disorder, unspecified; F32.9 Major depressive disorder, single episode, unspecified; R40.2142 Coma scale, eyes open, spontaneous, at arrival to emergency department; R40.2252 Coma scale, best verbal response, oriented, at arrival to emergency department; R40.2362 Coma scale, best motor response, obeys commands, at arrival to emergency department; Z88.0 Allergy status to penicillin; Z88.1 Allergy status to other antibiotic agents; Z88.8 Allergy status to other drugs, medicaments and biological substances; Z88.5 Allergy status to narcotic agent; Z98.51 Tubal ligation status; X10.2XXA Contact with fats and cooking oils, initial encounter
CPT/HCPCS: 90715

== ENCOUNTER → 2019-08-31 | Outpatient (CLI) | payer OTHER ==
[~2019-08-31] MED LIST changes: +BACI3.5O6 OP; +OXYC1TAB87 PO
--- NOTE | 2019-08-31 13:05 | Diagnostic Imaging Report ---
PROCEDURE: US Non-ob pelvis comp/trans. TECHNIQUE: Multiple Real-time grayscale images were obtained of the pelvis in various projections endovaginally. Transabdominal imaging was also performed. INDICATION: Enlarged uterus and heavy menses. FINDINGS: The uterus measures 9.1 x 5.5 x 5.6 cm. The endometrial thickness is 1.4 cm. There are nabothian cysts present. There are no discrete myometrial or endometrial masses. Both ovaries are normal in size and morphology demonstrating normal blood flow. There is an exophytic cyst projecting off the left ovary measuring 3 cm. There are no other adnexal masses. IMPRESSION: There is a 3 cm left ovarian cyst; otherwise, unremarkable pelvic ultrasound. Dictated by: Dictated on workstation # [id number]
== END ==
LOC: RAD 12:02
PROVIDERS: ATTEND Obstetrics & Gynecology
DX: N83.202 Unspecified ovarian cyst, left side (principal); N85.2 Hypertrophy of uterus
CPT/HCPCS: 76830; 76856

== ENCOUNTER 2019-09-23 09:23 | Outpatient (CLI) | payer OTHER ==
[~2019-09-23] VITALS: Ht 170 cm; Wt 84.7 kg
[2019-09-23] MEDS ORDERED: FERR-84 PO (09:32)
[2019-09-23] MEDS ORDERED: SERT25TA PO (09:32)
[2019-09-23] MEDS ORDERED: RT-ALBUINH IH (09:32)
[2019-09-23 09:35] VITALS: BP 112/65
[2019-09-23 10:12] LABS: BASOPHILS # (AUTO) 0.1 10^3/uL (0.0-0.1); BASOPHILS % (AUTO) 1 % (0-10); EOSINOPHILS # (AUTO) 0.1 10^3/uL (0.0-0.3); EOSINOPHILS % (AUTO) 2 % (0-10); HEMATOCRIT 33 % (35-52); HEMOGLOBIN 10.3 G/DL (11.5-16.0); LYMPHOCYTES # (AUTO) 2.2 X 10^3 (1.0-4.0); LYMPHOCYTES % (AUTO) 27 % (12-44); MEAN CORPUSCULAR HEMOGLOBIN 23 PG (25-34); MEAN CORPUSCULAR HGB CONC 32 G/DL (32-36); MEAN CORPUSCULAR VOLUME 73 FL (80-99); MEAN PLATELET VOLUME 10.4 FL (7.4-10.4); MONOCYTES # (AUTO) 0.4 X 10^3 (0.0-1.0); MONOCYTES % (AUTO) 5 % (0-12); NEUTROPHILS # (AUTO) 5.2 X 10^3 (1.8-7.8); NEUTROPHILS % (AUTO) 66 % (42-75); PLATELET COUNT 355 10^3/uL (130-400)
[2019-09-28] MEDS ORDERED: IBUP-844 PO (13:45)
[2019-09-28] MEDS ORDERED: HYDR-34 PO (13:45)
[2019-09-28] MEDS ORDERED: SIME80TA16 PO (13:45)
[2019-09-28] MEDS ORDERED: DOCU100C37 PO (13:45)
[2019-09-29] MEDS ORDERED: ACHD5005 PO (08:13)
== END 2019-09-23 12:00 | disposition home or self-care (01) ==
LOC: PREOP 09:23
PROVIDERS: ATTEND Obstetrics & Gynecology
DX: Z01.812 Encounter for preprocedural laboratory examination (principal); Z11.2 Encounter for screening for other bacterial diseases; N93.9 Abnormal uterine and vaginal bleeding, unspecified; D50.0 Iron deficiency anemia secondary to blood loss (chronic); Z80.41 Family history of malignant neoplasm of ovary
CPT/HCPCS: 36415; 85025; 86850; 86900; 86901; 87081

== ENCOUNTER 2019-10-23 12:18 | Emergency (ER) | payer OTHER ==
[~2019-10-23] VITALS: Ht 167.7 cm; Wt 82.3 kg
[~2019-10-23 12:18] MED LIST changes: +DOCU100C37 PO; +FERR-84 PO; +HYDR-34 PO; +IBUP-844 PO; +RT-ALBUINH IH; +SERT25TA PO; +SIME80TA16 PO
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
[2019-10-23] MEDS ORDERED: IBUPROFEN 600 MG (MOTRIN) TAB PO ONE (12:45)
--- NOTE | 2019-10-23 12:47 | Diagnostic Imaging Report ---
INDICATION: Right hand injury. Time of exam 12:44 PM 3 views right hand demonstrate an acute fracture of the distal 5th metacarpal. There is volar angulation of the distal fracture fragment. Remaining metacarpals are intact. Phalanges are intact. IMPRESSION: Acute mildly angulated distal 5th metacarpal fracture. Dictated by: Dictated on workstation # [id number]
[2019-10-23 13:28] VITALS: BP 128/84
== END 2019-10-23 13:28 | disposition home or self-care (01) ==
LOC: EDUNIT# 12:18 → ER 12:19
DX: S62.316A Displaced fracture of base of fifth metacarpal bone, right hand, initial encounter for closed fracture (principal); J45.909 Unspecified asthma, uncomplicated; G43.909 Migraine, unspecified, not intractable, without status migrainosus; F41.9 Anxiety disorder, unspecified; F32.9 Major depressive disorder, single episode, unspecified; Z90.710 Acquired absence of both cervix and uterus; Z88.0 Allergy status to penicillin; Z88.5 Allergy status to narcotic agent; Z88.8 Allergy status to other drugs, medicaments and biological substances; Z87.891 Personal history of nicotine dependence; Z77.22 Contact with and (suspected) exposure to environmental tobacco smoke (acute) (chronic); Z98.51 Tubal ligation status; Z82.49 Family history of ischemic heart disease and other diseases of the circulatory system; W22.8XXA Striking against or struck by other objects, initial encounter
CPT/HCPCS: 73130

== ENCOUNTER → 2019-10-30 | Outpatient (CLI) | payer OTHER ==
--- NOTE | 2019-10-30 11:01 | Diagnostic Imaging Report ---
INDICATION: Metacarpal fracture, follow-up. TIME OF EXAM: 10:31 a.m. COMPARISON: Correlation is made with prior right hand radiographs from 10/23/2019. FINDINGS: Angulated distal fifth metacarpal fracture is again seen. Fracture lines remain partly visible. Alignment is similar to prior exam. No new fracture is seen. Phalanges are intact. IMPRESSION: No significant change in the mildly angulated distal fifth metacarpal fracture when compared with examination approximately one week earlier. Dictated by: Dictated on workstation # [id number]
== END ==
LOC: ORTHO 09:53
PROVIDERS: ATTEND Orthopaedic Surgery
DX: S62.336D Displaced fracture of neck of fifth metacarpal bone, right hand, subsequent encounter for fracture with routine healing (principal); X58.XXXD Exposure to other specified factors, subsequent encounter
CPT/HCPCS: 25560; 73130

== ENCOUNTER → 2019-11-27 | Outpatient (CLI) | payer OTHER ==
--- NOTE | 2019-11-27 12:02 | Diagnostic Imaging Report ---
INDICATION: Fracture, follow up. TECHNIQUE: Three views of the right hand. CORRELATION STUDY: 10/30/2019. FINDINGS: Comminuted, mildly displaced and angulated distal fifth metacarpal fracture is again demonstrated. There is perhaps slight sclerosis along the fracture lines and suggesting mild interval healing. However, fracture lines do appear to be still present. The severity of angulation offset has perhaps minimally increased. No new bony abnormality. IMPRESSION: 1. Very little if any interval healing suggested about the mildly angulated and displaced distal fifth metacarpal fracture. The severity of offset may be perhaps slightly more prominent from prior study. Dictated by: Dictated on workstation # [id number]
== END ==
LOC: ORTHO 09:48
PROVIDERS: ATTEND Orthopaedic Surgery
DX: S62.336D Displaced fracture of neck of fifth metacarpal bone, right hand, subsequent encounter for fracture with routine healing (principal); X58.XXXD Exposure to other specified factors, subsequent encounter
CPT/HCPCS: 73130

== ENCOUNTER 2021-10-28 10:19 | Emergency (ER) | payer SELFPAY ==
[~2021-10-28] VITALS: Ht 167 cm; Wt 87.5 kg
[~2021-10-28 10:19] MED LIST changes: -CETI10TA20 PO; +CETI10TA49 PO
--- NOTE | 2021-10-28 11:41 | ED Upper Extremity ---
General Chief Complaint: Upper Extremity Stated Complaint: BI LAT HAND PAIN Nursing Triage Note: Pt to ED c/o bilat hand pain. Pt punched something with her right hand and hit her left hand. Bruising to both hands. Onset yesteday Source: patient Exam Limitations: no limitations History of Present Illness Date Seen by Provider: Oct 28, 2021 Time Seen by Provider: 11:40 Initial Comments She punched something with her right hand last night now she has pain and bruising over the fourth and fifth metacarpals dorsally. Then something fell onto the dorsal aspect of her left hand and she has bruising to the same location on that hand. Onset: just prior to arrival Severity: moderate Pain/Injury Location: bilateral hand Method of Injury: direct blow Modifying Factors: Worse With Movement Allergies and Home Medications Allergies Coded Allergies: Penicillins (Verified Allergy, Mild, ITCHING, 09/23/19) PT HAS HAD CEFTRIAXONE WITH NO ISSUES amoxicillin (Unverified Allergy, Mild, SWELLING, 09/23/19) diphenhydramine (Verified Allergy, Mild, HIVES, 09/23/19) hydrocodone (Unverified Allergy, Mild, ITCHING, can take 5 mg strength, 09/28/19) Per Josefina SUAREZ patient states can take Lortab 5 mg, 7.5 mg too strong Patient Home Medication List Home Medication List Reviewed: Yes Albuterol Sulfate (Proair Hfa) 1 Puff Puff, 2 PUFF IH Q4H PRN for SHORTNESS OF B REATH, (Reported) Entered as Reported by: SANTA WELCH on 09/23/19 0932 Cetirizine HCl (Zyrtec) 10 Mg Tablet, 10 MG PO DAILY, (Reported) Entered as Reported by: TARYN KAUR on 05/15/18 1438 Docusate Sodium (Docusate Sodium) 100 Mg Capsule, 100 MG PO BID PRN for CONSTIPATION-1ST LINE Prescribed by: MARIO SEGOVIA on 09/28/19 1345 Ferrous Sulfate (Iron) 325 Mg Tablet, 325 MG PO DAILY, (Reported) Entered as Reported by: SANTA WELCH on 09/23/19 0932 Hydrocodone Bit/Acetaminophen (Lortab 5 Mg Tablet) 1 Tab Tab, 1-2 TAB PO Q6H PRN for PAIN-MODERATE (5-7) Prescribed by: NIKOLAI CLEARY on 09/29/19 0813 Ibuprofen (Ibu) 600 Mg Tablet, 600 MG PO Q6H PRN for PAIN-MODERATE (5-7) Prescribed by: MARIO SEGOVIA on 09/28/19 1345 Sertraline HCl (Zoloft) 25 Mg Tablet, 25 MG PO DAILY, (Reported) Entered as Reported by: SANTA WELCH on 09/23/19 0932 Simethicone (Simethicone) 80 Mg Tab.chew, 40 MG PO TID PRN for INDIGESTION 2ND LINE Prescribed by: MARIO SEGOVIA on 09/28/19 1345 Review of Systems Constitutional: see HPI EENTM: see HPI Respiratory: no symptoms reported Cardiovascular: no symptoms reported Genitourinary: no symptoms reported Musculoskeletal: see HPI Skin: no symptoms reported Psychiatric/Neurological: No Symptoms Reported Past Agrznom-Rtpsdt-Yinkzt Hx Patient Social History Tobacco Use?: No Substance use?: No Alcohol Use?: Yes Alcohol Frequency: Once in a while Immunizations Up To Date PED Vaccines UTD: No Influenza Vaccine Up-to-Date: No; Not Current Seasonal Allergies Seasonal Allergies: Yes Past Medical History Surgeries: No Tubal Ligation Respiratory: Yes Asthma Cardiac: No Neurological: Yes Headaches /Migraines Female Reproductive Disorders: Menstrual Problems, 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 Heart Disease Physical Exam Vital Signs Vital Signs - First Documented 10/28/21 11:00 Temp 36.0 Pulse 86 Resp 16 B/P (MAP) 110/78 (89) Pulse Ox 100 O2 Delivery Room Air Capillary Refill : Less Than 3 Seconds Height, Weight, BMI Height: 5'6.00" Weight: 185lbs. 2.0oz. [id number]; 31.00 BMI Method:Stated General Appearance: WD/WN, no apparent distress HEENT: PERRL/EOMI Neck: non-tender, full range of motion Respiratory: no respiratory distress, no accessory muscle use Elbow/Forearm: normal inspection, non-tender Wrist: Yes normal inspection, Yes non-tender Hand: normal inspection, non-tender, Bilateral (To the right hand there is a small area of ecchymosis without deformity or open wound over the dorsal aspect of the fourth and fifth metacarpals. There is also a small area of ecchymosis without open wound to the dorsal aspect of the left hand over the fourth and fifth metacarpals.) Neurologic/Psychiatric: alert, normal mood/affect, oriented x 3 Skin: normal color, warm/dry Progress/Results/Core Measures Results/Orders My Orders Orders - LINO CRUZ APRN Hand, 3 Views, Bilateral (10/28/21 11:34) Vital Signs/I&O 10/28/21 11:00 Temp 36.0 Pulse 86 Resp 16 B/P (MAP) 110/78 (89) Pulse Ox 100 O2 Delivery Room Air Blood Pressure Mean: 89 Departure Communication (Admissions) A Colles' splint for the right hand since that is her most painful hand, left hand to be unsplinted so that it can be functional as it is nothing more than a minor bruise. Impression Primary Impression: Contusion of hand Disposition: 01 HOME, SELF-CARE Condition: Stable Departure-Patient Inst. Decision time for Depature: 12:13 Referrals: [facility] (PCP/Family) Primary Care Physician Patient Instructions: Contusion (DC) Add. Discharge Instructions: You can take the splint off of the right whenever the hand feels better. Ice pack Tylenol and ibuprofen for pain control. Return to ER for any concerns. Follow-up with your doctor next week for any persistent pain. All discharge instructions reviewed with patient and/or family. Voiced understanding. Work/School Note: Work Release Form Date Seen in the Emergency Department: Oct 28, 2021 Return to Work: Oct 31, 2021 LINO CRUZ APRN Oct 28, 2021 11:41
--- NOTE | 2021-10-28 12:35 | Diagnostic Imaging Report ---
INDICATION: Punched something with right hand and left hand one day earlier. Bruising to both hands. TECHNIQUE: Three views of the bilateral hand. CORRELATION STUDY: None FINDINGS: There is no evidence for an acute fracture of either hand. The joint spaces are maintained. Findings are compatible with a previous, old fracture deformity of the right 5th metacarpal. Soft tissues are unremarkable. IMPRESSION: 1. Negative for acute bony abnormality of either hand. Dictated by: Dictated on workstation # [id number]
[2021-10-28 12:43] VITALS: BP 110/78
== END 2021-10-28 12:43 | disposition home or self-care (01) ==
LOC: EDUNIT# 10:19 → ER 10:21
DX: S60.222A Contusion of left hand, initial encounter (principal); S60.221A Contusion of right hand, initial encounter; J45.909 Unspecified asthma, uncomplicated; F41.9 Anxiety disorder, unspecified; F32.9 Major depressive disorder, single episode, unspecified; Z79.899 Other long term (current) drug therapy; W22.8XXA Striking against or struck by other objects, initial encounter
CPT/HCPCS: 99281